=== PATIENT | female | born 1995 | race Caucasian/White ===

== ENCOUNTER 2017-12-21 10:29 | Emergency (ER) | payer SELFPAY ==
[~2017-12-21] VITALS: Ht 167.6 cm; Wt 46.3 kg
== END 2017-12-21 10:47 | disposition home or self-care (01) ==
LOC: ED 10:29
DX: R07.81 Pleurodynia (principal)

== ENCOUNTER 2017-12-21 11:16 | Emergency (ER) | payer OTHER ==
[~2017-12-21] VITALS: Ht 167.6 cm; Wt 46.3 kg
--- NOTE | 2017-12-21 15:50 | EKG ---
[facility] [address] [place], [place] [address] Signed Normal sinus rhythm with sinus arrhythmia Normal ECG No previous ECGs available Confirmed by IVAN SHEARER MD ([id number]) on 12/21/2017 3:50:17 PM Electronically Signed By: IVAN SHEARER MD 12/21/17 1550 PATIENT NAME: YESSI BRAN CLINT Electrocardiogram DATE OF : [birth year] PHYSICIAN: IVAN SHEARER MD REPORT #: [id number] REPORT IS CONFIDENTIAL AND NOT TO BE RELEASED WITHOUT AUTHORIZATION
== END 2017-12-21 13:35 | disposition home or self-care (01) ==
LOC: ED 11:16
DX: R09.1 Pleurisy (principal); F17.200 Nicotine dependence, unspecified, uncomplicated; Z88.0 Allergy status to penicillin
CPT/HCPCS: 71046; 93005; 93010; 99283

== ENCOUNTER 2018-04-23 22:02 | Emergency (ER) | payer OTHER ==
[~2018-04-23] VITALS: Ht 167.6 cm; Wt 46.3 kg
[2018-04-23] MEDS ORDERED: PYRIDIUM200 MG PO (23:10)
[2018-04-23] MEDS ORDERED: KEFLEX500 MG PO (23:10)
== END 2018-04-23 23:25 | disposition home or self-care (01) ==
LOC: ED 22:02
DX: N39.0 Urinary tract infection, site not specified (principal); F17.200 Nicotine dependence, unspecified, uncomplicated; Z88.0 Allergy status to penicillin
CPT/HCPCS: 81001; 84703; 87077; 87088; 87186; 99283

== ENCOUNTER 2018-08-26 09:37 | Emergency (ER) | payer OTHER ==
[~2018-08-26] VITALS: Ht 167.6 cm; Wt 46.3 kg
--- OUTSIDE RECORDS SUMMARY | ~2018-08-26 | XMS | Clinical Summary ---
Demographics + + + | Address | [address] | | | [place] [address] | + + + | Home Phone | | + + + | Preferred Language | Unknown | + + + | Marital Status | Single | + + + | Evangelical Affiliation | Unknown | + + + | Race | Unknown | + + + | Ethnic Group | Unknown | + + + Author + + + | Author | [facility] [employer] [facility] | + + + | Organization | [facility] [employer] [facility] | + + + | Address | Unknown | + + + | Phone | Unavailable | + + + Support +--------+ +---------+ + | Name | Relationship | Address | Phone | +--------+ +---------+ + | No,One | ECON | Unknown | | +--------+ +---------+ + Care Team Providers + +------+ + | Care Crop Farm Helper Name | Role | Phone | + [...] +------+-------+ + | MEDICAID | [employer] | [id number] | | | [address] | | | [place] | | | | [place] | | | [place] | | | | [phone] | | | EXECUTIVE CHEF | | | | | + +--------+ [...] | Self | [birth year] | Home: | [id number] | | | [place] | | 1994 | [phone] | [place] [address] | | | [place] | | | [phone] | | + +--------+ +--------+ + +"
--- OUTSIDE RECORDS SUMMARY | ~2018-08-26 | XMS | Clinical Summary ---
Demographics + + + | Address | [address] | | | [place] [address] | + + + | Home Phone | | + + + | Preferred Language | Unknown | + + + | Marital Status | Single | + + + | Islam Affiliation | Unknown | + + + | Race | Unknown | + + + | Ethnic Group | Unknown | + + + Author + + + | Author | [facility] [employer] [facility] | + + + | Organization | [facility] | + + + | Address | Unknown | + + + | Phone | Unavailable | + + + Support +--------+ +---------+ + | Name | Relationship | Address | Phone | +--------+ +---------+ + | No,One | ECON | Unknown | | +--------+ +---------+ + Care Team Providers + +------+ + | Care Tool Design Checker Name | Role | Phone | + [...] +------+-------+ + | MEDICAID | [employer] | [id number] | | | [address] | | | [place] | | | | [place] | | | [place] | | | | [phone] | | | MANAGER ETL | | | | | + +--------+ [...] | Self | [birth year] | Home: | [address] | | | [place] | | 1994 | [phone] | [place] [address] | | | [place] | | | [phone] | | + +--------+ +--------+ + +"
[~2018-08-26 09:37] MED LIST: KEFLEX500 MG PO; PYRIDIUM200 MG PO
== END 2018-08-26 09:48 | disposition home or self-care (01) ==
LOC: ED 09:37
DX: M54.2 Cervicalgia (principal)

== ENCOUNTER 2018-08-30 17:05 | Emergency (ER) | payer OTHER ==
--- OUTSIDE RECORDS SUMMARY | ~2018-08-30 | XMS | Clinical Summary ---
Demographics + + + | Address | [address] | | | [place] [address] | + + + | Home Phone | | + + + | Preferred Language | Unknown | + + + | Marital Status | Single | + + + | Amish Affiliation | Unknown | + + + | Race | Unknown | + + + | Ethnic Group | Unknown | + + + Author + + + | Author | [facility] [employer] [facility] | + + + | Organization | [facility] | + + + | Address | Unknown | + + + | Phone | Unavailable | + + + Support +--------+ +---------+ + | Name | Relationship | Address | Phone | +--------+ +---------+ + | No,One | ECON | Unknown | | +--------+ +---------+ + Care Team Providers + +------+ + | Care Flatlock Sewing Machine Operator Name | Role | Phone | + +------+ + | Anabela Cruz PA-C | PP | | + +------+ + Allergies Not on File Current Medications Not on file Active Problems Not on file Social History + +-------+ +--------+------+ | Tobacco Use | Types | Packs/Day | Years | Date | | | | | Used | | + +-------+ +--------+------+ | Never Assessed | | | | | + +-------+ +--------+------+ + + + | Sex Assigned at | Date Recorded | | | | + + + | Not on file | | + + + Plan of Treatment Not on file Results Not on filefrom Last 3 Months Insurance + +--------+ +------+-------+ + | Payer | Benefi | Subscriber | Type | Phone | Address | | | t Plan | ID | | | | | | / | | | | | | | Group | | | | | + +--------+ +------+-------+ + | MEDICAID | [employer] | [id number] | | | [address] | | | N | | | | [place] | | | [place] | | | | [phone] | | | [employer] | | | | | + +--------+ +------+-------+ + + +--------+ +--------+ + + | Guarantor Name | Accoun | Relation to | Date | Phone | Billing Address | | | t Type | Patient | of | | | | | | | | | | + +--------+ +--------+ + + | TOVA BRAN | Person | Self | [birth year] | Home: | [id number] | | | [place] | | 1994 | [phone] | [place] [address] | | | [place] | | | [phone] | | + +--------+ +--------+ + +"
--- OUTSIDE RECORDS SUMMARY | 2018-09-01 14:50 | XMS ---
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 [facility] VISIT COUNT (12 MO.) [address] [facility] TOTAL 5 NOTE: Visits indicate total known visits. ED/UCC VISIT TRACKING (12 MO.) 08/30/2018 17:05 [facility] [place] TYPE: Emergency COMPLAINT: - R EAR PAIN/NO INJURY 08/26/2018 09:37 [facility] [place] TYPE: Emergency COMPLAINT: - NECK PN DIAGNOSES: - Cervicalgia 04/23/2018 22:03 [facility] [place] TYPE: Emergency COMPLAINT: - POSS UTI DIAGNOSES: - Dysuria - Allergy status to penicillin - Urinary tract infection, site not specified - Nicotine dependence, unspecified, uncomplicated 12/21/2017 11:16 [facility] [place] TYPE: Emergency COMPLAINT: - COLD SYMPTOMS DIAGNOSES: - Nicotine dependence, unspecified, uncomplicated - Allergy status to penicillin - Pleurisy - Pleurodynia 12/21/2017 10:30 [facility] [place] TYPE: Emergency COMPLAINT: - L RIB PAIN/NO INJURY/MSE DIAGNOSES: - Pleurodynia INPATIENT VISIT TRACKING (12 MO.) No inpatient visits to display in this time frame [email or web address]
== END 2018-09-01 14:47 | disposition left against medical advice (07) ==
LOC: CANPREER → ED 17:05
DX: Z53.21 Procedure and treatment not carried out due to patient leaving prior to being seen by health care provider (principal)